=== PATIENT | male | born 1940 | race Asian ===

== ENCOUNTER 2016-08-01 02:18 | Emergency (ER) | payer BC, MEDICARE, OTHER ==
[~2016-08-01] VITALS: Ht 175.3 cm; Wt 66.5 kg
[~2016-08-01 02:18] MED LIST: ASPI-727 PO; ATOR10TA23 PO; NEXIUM PO; OLME40TA14 PO
[2016-08-01 02:26] VITALS: Ht 175.3 cm; Wt 66.5 kg
[2016-08-01] MEDS ORDERED: COLCHICINE 0.6 MG TAB PO ONE ×2 (03:00→03:30)
[2016-08-01] MEDS ORDERED: KETOROLAC 30 MG INJ IM STA (03:13)
[2016-08-01] MEDS ORDERED: morphine 10 MG INJ IM ONE (03:30)
[2016-08-01] MEDS ORDERED: HYDR-906 PO (04:10)
[2016-08-01] MEDS ORDERED: COLC0.6C PO (04:10)
[2016-08-01] MEDS ORDERED: NAPR-685 PO (04:10)
--- NOTE | 2016-08-01 04:13 | ERD ---
ER Documentation Chief Complaint Date/Time DATE: 08/01/16 TIME: 04:11 Chief Complaint Right ankle pain. Dx with PTB July 07. Medicated since 07/08 HPI 75-year-old male presents emergency room with right ankle pain that began yesterday. He had swelling and redness to the ankle. No trauma. He has a history of gout. His first gout was on his left ankle. He is not taking any medications for gout currently. He has no fevers or chills. Only has left ankle pain and mostly when he walks on it. ROS All systems reviewed and are negative except as per history of present illness. Medications Home Meds Active Scripts Hydrocodone/Acetaminophen (Floral 5-325 Tablet) 1 Each Tablet, 1 EACH PO Q6 for PAIN, #14 TAB Prov:NELLY GILLIS DO 08/01/16 Naproxen* (Naproxen*) 375 Mg Tablet, 375 MG PO BID Y for PAIN, #10 TAB Prov:NELLY GILLIS DO 08/01/16 Colchicine (Colchicine) 0.6 Mg Capsule, 0.6 MG PO instructions, #10 CAP Take 2 tabs if actue gout flare. Take 1 tab if still pain 1 hour later. Do not exceed more than 3 pills in a few hour period. Prov:NELLY GILLIS DO 08/01/16 Reported Medications Aspirin (Adult Aspirin) 81 Mg Tab.chew, 81 MG PO DAILY 11/29/10 [Nexium] No Conflict Check, PO DAILY 11/29/10 Atorvastatin (Lipitor) 10 Mg Tablet, 10 MG PO HS 11/29/10 Olmesartan Medoxomil (Benicar) 40 Mg Tablet, 40 MG PO DAILY 11/29/10 Allergies Allergies: Coded Allergies: No Known Allergy (Verified Allergy, Unknown, 11/29/10) PMhx/Soc History of Surgery: No Anesthesia Reaction: No Hx Neurological Disorder: No Hx Respiratory Disorders: Yes (on TB meds since June,was seen by [facility].) Hx Cardiac Disorders: Yes (htn) Hx Psychiatric Problems: No Hx Miscellaneous Medical Probl: Yes (bells palsy,gout) Hx Alcohol Use: Yes (rarely) Hx Substance Use: No Hx Tobacco Use: Yes (quit) Smoking Status: Former smoker Physical Exam Vitals Vital Signs Date Time Temp Pulse Resp B/P Pulse Ox O2 Delivery O2 Flow Rate FiO2 08/01/16 02:26 100.0 88 20 124/69 95 Physical Exam Const: [] No distress Head: Atraumatic Eyes: Normal Conjunctiva Skin: No petechiae or rashes Ext: Right ankle with erythema, mild swelling, calor, tenderness to palpation. Distal pulses intact with good capillary refill. No sign of skin breakage. Neur: Awake and alert and oriented 3, no focal deficits. Psych: Normal Mood and Affect Results 24 hrs Current Medications Medications (Trade) Dose Ordered Sig/Iban Route PRN Reason Start Time Stop Time Status Last Admin Dose Admin Colchicine (Colchicine) 1.2 mg ONCE ONCE PO 08/01/16 03:00 08/01/16 03:01 DC 08/01/16 02:53 Colchicine (Colchicine) 0.6 mg ONCE ONCE PO 08/01/16 03:30 08/01/16 03:31 DC 08/01/16 03:35 Ketorolac Tromethamine (Toradol) 30 mg ONCE STAT IM 08/01/16 03:13 08/01/16 03:15 DC 08/01/16 03:31 Morphine Sulfate (morphine) 4 mg ONCE ONCE IM 08/01/16 03:30 08/01/16 03:31 DC 08/01/16 03:33 Procedures/MDM Acute gout attack of right ankle. Patient was given colchicine 1.2 then later colchicine 0.6. This point was also given Toradol 30 mg IM and morphine 4 mg IM. His pain subsided substantially. I am going to discharge him with a few colchicine tabs as well as naproxen and Floral. Primary care follow-up in the next 2-3 days. Have low suspicion for septic joint or cellulitis given presentation more consistent with gout in patient with history of gout the same area Departure Diagnosis: Primary Impression: Gout attack Condition: Stable Patient Instructions: Treating Gout Attacks, Gouty Arthritis Additional Instructions: Call your primary care doctor TOMORROW for an appointment during the next 2-3 days.See the doctor sooner or return here if your condition worsens before your appointment time. NELLY GILLIS DO Aug 01, 2016 04:13
== END 2016-08-01 04:18 | disposition home or self-care (01) ==
LOC: E/R 02:18
DX: M10.9 Gout, unspecified (principal); R40.2252 Coma scale, best verbal response, oriented, at arrival to emergency department; I10 Essential (primary) hypertension; R40.2142 Coma scale, eyes open, spontaneous, at arrival to emergency department; R40.2362 Coma scale, best motor response, obeys commands, at arrival to emergency department; Z79.82 Long term (current) use of aspirin; Z87.891 Personal history of nicotine dependence
CPT/HCPCS: 96372; 99284; J1885; J2270

== ENCOUNTER 2018-09-16 22:10 | Emergency (ER) | payer BC ==
[~2018-09-16] VITALS: Ht 177.8 cm; Wt 73.4 kg
[~2018-09-16 22:10] MED LIST changes: +COLC0.6C PO; +HYDR-4011 PO; +IBUP-1561 PO; +NAPR-685 PO; +OLME40TA13 PO; -OLME40TA14 PO
[2018-09-16 22:22] VITALS: Ht 177.8 cm; Wt 73.4 kg
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
[2018-09-16 23:31] VITALS: BP 129/67; PULSE 17; RESP 17
== END 2018-09-16 23:12 | disposition home or self-care (01) ==
LOC: FTE 22:10
DX: S39.012A Strain of muscle, fascia and tendon of lower back, initial encounter (principal); I10 Essential (primary) hypertension; V44.6XXA Car passenger injured in collision with heavy transport vehicle or bus in traffic accident, initial encounter; Z79.82 Long term (current) use of aspirin; Z87.891 Personal history of nicotine dependence
CPT/HCPCS: 99282